=== PATIENT | female | born 1990 | race African-American/Black ===

== ENCOUNTER 2022-10-14 10:33 | Outpatient (CLI) | payer BC, SELFPAY ==
[2022-10-14 23:09] LABS: HCG Qualitative Serum* Negative (Negative)
== END 2022-10-14 10:34 | disposition home or self-care (01) ==
LOC: FRMREF 13:19
PROVIDERS: Visit Provider Family Medicine
DX: N91.2 Amenorrhea, unspecified (principal)
CPT/HCPCS: 84703

== ENCOUNTER 2023-01-31 12:06 | Outpatient (CLI) | payer BC, SELFPAY ==
--- NOTE | 2023-01-31 12:15 | CRLHL7_ITS ---
For Patients: As a result of the Century Cures Act, medical imaging exams and procedure reports are released immediately into your electronic medical record. You may view this report before your referring provider. If you have questions, please contact your health care provider. INDICATION: First trimester scan, establish dates. TECHNIQUE: Real-time glaser-scale imaging of the pelvis was performed. FINDINGS: Sonographic imaging demonstrates a single living intrauterine gestation. The embryo demonstrates a regular cardiac rate measuring 163 beats per minute. The embryo`s crown-rump length measurement of 5.6 cm corresponds to a gestational age of 12 weeks 1 day with a sonographic due date of 08/14/2023. There is a normal-appearing yolk sac. Right ovarian corpus luteum cyst. Ovaries are otherwise unremarkable. IMPRESSION: Normal first trimester OB ultrasound exam. Gestational age calculated at 12 weeks 1 day with a sonographic due date of 08/14/2023 . Dictated by Shayy Hansen MD @ 01/31/2023 1:15:52 PM (Electronically Signed)
== END 2023-01-31 12:07 | disposition home or self-care (01) ==
LOC: US 12:07
PROVIDERS: PCP Family Medicine; Visit Provider Physician Assistant
DX: Z34.91 Encounter for supervision of normal pregnancy, unspecified, first trimester (principal); Z3A.12 12 weeks gestation of pregnancy
CPT/HCPCS: 76801; 86703; 86803; 86850; 86900; 86901; 87340; 87491; 87591

== ENCOUNTER 2023-01-31 13:38 | Outpatient (CLI) | payer BC, SELFPAY ==
[2023-01-31 19:04] LABS: Chlamydia DNA Amplified* NOT DETECTED (No Detected); GC DNA Amplified* NOT DETECTED (No Detected)
== END 2023-01-31 13:39 | disposition home or self-care (01) ==
PROVIDERS: PCP Family Medicine; Visit Provider Advanced Practice Midwife
DX: Z34.91 Encounter for supervision of normal pregnancy, unspecified, first trimester (principal)
CPT/HCPCS: 86592; 86703; 86762; 86787; 86803; 86850; 86900; 86901; 87086; 87340; 87491; 87591

== ENCOUNTER 2023-03-31 08:54 | Outpatient (CLI) | payer BC, SELFPAY ==
--- NOTE | 2023-03-31 09:15 | CRLHL7_ITS ---
For Patients: As a result of the Century Cures Act, medical imaging exams and procedure reports are released immediately into your electronic medical record. You may view this report before your referring provider. If you have questions, please contact your health care provider. INDICATION: Evaluate anatomy. COMPARISON: None. TECHNIQUE: Real time glaser scale imaging of the fetus was performed. FINDINGS: Sonographic imaging demonstrates a single living intrauterine gestation. Fetus demonstrates a regular cardiac rate of 144 beats per minute. Fetus has a jesus breech orientation. The placenta lies fundally and toward the right lateral wall without evidence of placenta previa. The placental edge is 3.3 cm away from the internal cervical os. Amniotic fluid volume appears normal. Single deepest vertical pocket: 5.1 cm. The cervix is closed and measures 3.3 cm in length. The composite ultrasound gestational age is calculated at 20 weeks 2 days with an estimated sonographic due date of August 16, 2023. The estimated weight is 361 grams which lies at the 44 percentile. The following biometric measurements were obtained: Biparietal diameter: 4.7 cm/20 weeks 0 days 28% Head circumference: 17.3 cm/19 weeks 6 days 13% Abdominal circumference: 15.8 cm/21 weeks 0 days 56% Femur length: 3.3 cm/20 weeks 2 days 33% The HC/AC ratio measures: 1.1 range (1.07-1.25) On anatomic survey, there is a normal appearance of the cerebral ventricles, cisterna magna and cerebellum. The nose, lips, and facial profile appear normal. The cervical, thoracic and lumbar spine are well visualized and appear normal. There is a normal four-chamber heart view and the left and right ventricular outflow tracts appear normal. diaphragm, stomach, kidneys and bladder appear normal. There is a normal three-vessel cord. The cord insertion site is eccentric. The four extremities appear normal. IMPRESSION: Normal OB ultrasound exam with concordance of clinical and sonographic dating. No intrinsic abnormalities noted on anatomic survey. Eccentric cord insertion site on the placenta. Dictated by Braden Orr MD @ 03/31/2023 10:35:46 AM (Electronically Signed)
== END 2023-03-31 08:55 | disposition home or self-care (01) ==
LOC: US 08:54
PROVIDERS: PCP Family Medicine; Visit Provider Advanced Practice Midwife
DX: Z34.92 Encounter for supervision of normal pregnancy, unspecified, second trimester (principal); Z3A.20 20 weeks gestation of pregnancy
CPT/HCPCS: 76805

== ENCOUNTER 2023-05-26 11:47 | Outpatient (CLI) | payer BC, SELFPAY | END 2023-05-26 11:48 | disposition home or self-care (01) | LOC: FRMREF 11:47 | PROVIDERS: PCP Family Medicine; Visit Provider Registered Nurse | DX: Z34.93 Encounter for supervision of normal pregnancy, unspecified, third trimester (principal); Z3A.28 28 weeks gestation of pregnancy | CPT/HCPCS: 86592 ==

== ENCOUNTER 2023-06-20 11:50 | Outpatient (CLI) | payer BC, SELFPAY ==
[2023-06-20 12:14] VITALS: BP 106/65; PULSE 93
[2023-06-20 12:24] VITALS: TEMP 36.9
[2023-06-20 12:56] LABS: Appearance Urine Slightly Cloudy (Clear); Bilirubin Urine Negative (Negative); Blood Urine Negative (Negative); Color Urine Yellow (Yellow); Glucose Urine Negative (Negative); Ketones Urine Negative (Negative); Leukocyte Esterase Urine Trace (Negative); Nitrite Urine Negative (Negative); Protein Urine Negative (Negative); Urobilinogen Urine 0.2 (0.2-1.0); pH Urine 7.5 (5.0-8.5)
[2023-06-20 13:00] LABS: Clue Cells No Clue Cells Seen (None Seen); Trichomonas No Trichomonas Seen (None Seen); Yeast No Yeast Seen (None Seen)
[2023-06-20 13:06] LABS: Amnisure Rom* Negative
[2023-06-20 13:07] LABS: RBC Urine 0-2 (0-2)
[2023-06-20 13:08] LABS: Bacteria Urine Many; Squamous Epithelial Cell Urine Many (None-Few); WBC Urine 0-2 (0-5)
[2023-06-20 13:19] LABS: Fetal Fibronectin* Negative (Negative)
--- NOTE | 2023-06-20 14:04 | PC.OBNST ---
NST Note NST Note Start: 06/20/23 11:55 Freq: ONCE Status: Active Protocol: Document 06/20/23 14:00 ESTHER (Rec: 06/20/23 14:04 BRIT [id number]) NST Note 5 Para (# of births) 3 EDC 08/14/23 Gestational Age In Weeks & Days 32 Weeks & 1 Days Patient Presented with Complaint(s) of Contractions/cramping Reactive Yes Appropriate for Gestational Age Yes RN Vivian Gomez RN Date 06/20/23 Reactive Yes Appropriate for Gestational Age Yes ANDREW Arredondo CNM Date 06/20/23 OB NST charge Yes Complete NST Note via Write Note Yes The provider's electronic signature indicates the NST is reactive/appropriate for gestational age. *Note to provider: If an addendum is required, open the patient's chart and click on the note under the Nurse/Allied Health tab.
== END 2023-06-20 14:00 | disposition home or self-care (01) ==
LOC: OB OUT 11:51 → OB 11:51
PROVIDERS: PCP Family Medicine; Visit Provider Advanced Practice Midwife
DX: O47.03 False labor before 37 completed weeks of gestation, third trimester (principal); Z3A.32 32 weeks gestation of pregnancy
CPT/HCPCS: 59025; 76815; 81003; 81015; 84112; 87086; 87210; 99213

== ENCOUNTER 2023-07-08 13:41 | Outpatient (CLI) | payer BC, SELFPAY | END 2023-07-08 13:42 | disposition home or self-care (01) | LOC: FRMREF 13:42 | PROVIDERS: PCP Family Medicine; Visit Provider Registered Nurse | DX: O09.33 Supervision of pregnancy with insufficient antenatal care, third trimester (principal); Z34.93 Encounter for supervision of normal pregnancy, unspecified, third trimester; Z3A.34 34 weeks gestation of pregnancy | CPT/HCPCS: 80306 ==

== ENCOUNTER 2023-07-27 14:49 | Outpatient (CLI) | payer BC, SELFPAY ==
[2023-07-28 19:34] LABS: Strep B DNA Probe Negative (Negative)
[2023-07-28 19:43] LABS: Strep B Susceptibility Needed? No
== END 2023-07-27 14:50 | disposition home or self-care (01) ==
PROVIDERS: PCP Family Medicine; Visit Provider Advanced Practice Midwife
DX: Z34.93 Encounter for supervision of normal pregnancy, unspecified, third trimester (principal); Z3A.37 37 weeks gestation of pregnancy; Z20.2 Contact with and (suspected) exposure to infections with a predominantly sexual mode of transmission
CPT/HCPCS: 86480; 87081; 87653

== ENCOUNTER 2023-08-18 13:49 | Outpatient (CLI) | payer BC, SELFPAY ==
[2023-08-18 14:16] VITALS: BP 118/72; PULSE 109; TEMP 37.1
--- NOTE | 2023-08-18 15:57 | PM.OBLDTN ---
OB - Triage/Final Diagnosis Visit Information Time Seen by Provider: 15:58 Date Seen: 08/18/23 Date of evaluation: 08/18/23 Narrative: The patient is a 33 year old 5 para 3 at 40.4 weeks gestation, who presents with contractions. She has been having increasing contractions for the last week. She states they feel stronger today. Also had a few bouts of diarrhea this morning. SVE done, 1-2/thick/-3, posterior. Given options of going home or repeating in an hour. She preferred to stay, and a repeat exam an hour later demonstrated no change. We reviewed these may be early labor or just garrett alyssa ctx. She was given the option of going home, or staying a few more hours for a repeat exam, since she lives almost 30 mins away and this is her 4th baby. She decided to go home. Labor precautions/when to return were reviewed, including contractions increasing in intensity, increasing pressure/urge to push, SROM, bleeding, or decreased movement. She did ask about an IOL, which she has scheduled for Tuesday when she is 41 weeks. We reviewed the [facility] policy for IOL, and she does not meet the criteria at this time. Evaluation Vital signs: Vital Signs - 24 hr 08/18/23 14:16 08/18/23 14:16 Temperature 98.7 F Pulse Rate 109 H Blood Pressure 118/72
--- NOTE | 2023-08-18 16:04 | PC.OBNST ---
NST Note NST Note Start: 08/18/23 16:03 Freq: Status: Active Protocol: Document 08/18/23 16:03 SCOTT (Rec: 08/18/23 16:03 SCOTT [id number]) NST Note 5 Para (# of births) 3 EDC 08/14/23 Gestational Age In Weeks & Days 40 Weeks & 4 Days Patient Presented with Complaint(s) of Contractions/cramping Reactive Yes Appropriate for Gestational Age Yes ANDREW Huertas RN Date 08/18/23 Reactive Yes Appropriate for Gestational Age Yes ANDREW Hill RN Date 08/18/23 OB NST charge Yes Complete NST Note via Write Note Yes The provider's electronic signature indicates the NST is reactive/appropriate for gestational age. *Note to provider: If an addendum is required, open the patient's chart and click on the note under the Nurse/Allied Health tab.
== END 2023-08-18 16:00 | disposition home or self-care (01) ==
LOC: OB OUT 13:50 → OB 13:50
PROVIDERS: PCP Family Medicine; Visit Provider Advanced Practice Midwife
DX: O47.1 False labor at or after 37 completed weeks of gestation (principal); Z3A.40 40 weeks gestation of pregnancy
CPT/HCPCS: 59025; 99213

== ENCOUNTER 2023-08-22 07:18 | Inpatient (IN) | payer BC, SELFPAY ==
[2023-08-22] VITALS (17 sets, daily range): BP systolic 99–127; BP diastolic 59–75; PULSE 80–104; RESP 16; TEMP 36.4–37.1; O2SAT 97–98; BMI 33.7
[2023-08-22] MEDS: miSOPROStoL 25 MCG/0.25 TABLET VAGINAL ×2 (08:25→12:29)
--- NOTE | 2023-08-22 08:52 | W.PM.LDBA ---
Subjective History of Present Illness Narrative: Miky is a 33yo is a at 41 1/7 weeks gestation being admitted to Labor and Delivery for induction of labor for post-term. Her full history and physical was dictated by GUILLE Aguayo on 08/06/2023. Please see this for details. Specific Issues/Plans Partner: Midhagaa IOL 08/22 H&P for labor 07/27/23 by Fidencio Dewitt CNM 1. FOB Hep C+, has been treated. 2. Hx tapeworm December 2022. Was treated. 3. Nausea/vomiting. Started Unisom &B6 at NOB. PRN Zofran script also sent. Resolved. 4. Thrombocytopenia Platelets 128 at NOB. 28 weeks: plt 138. Recheck at 37 weeks: 146 5. Infrequent care. Neg Utox at 34 weeks. COVID: Flu: offer at next visit; declined on 07/08 TDAP: 07/08 OB - Problem Based A/P Additional Plan (1) Encounter for induction of labor: Status: Acute (2) Post term , 41 weeks: Status: Acute (3) Thrombocytopenia affecting : Status: Acute Plan ASSESSMENT:? 33 at 41 1/7 weeks gestation? complicated by:?Hx of tapeworm early 2022, Thrombocytopenia, infrequent care Labor type: Induced, not in labor? Category 1 FHR pattern.?? Labor complicated by: none? GBS negative? ? PLAN:? 1. Routine intrapartum cares as ordered. Discussed induction methods. Recommend vaginal cytotec every 4 hour. She agrees with plan. 2. Monitoring per policy, continuous 3. Planning unmedicated . Candidate for analgesia of choice if desired.?? 4. Patient encouraged to reposition and ambulate to promote physiologic labor and .? 5. Plan CBC for thrombocytopenia of . 6. Anticipate ? Delivery/Labor/Induction Plan Plan: induction Induction method: per misoprostol protocol OB Exam Physical Exam Vital signs: Temp Pulse Resp BP Pulse Ox 98.4 F 101 H 16 118/69 98 08/22/23 07:38 08/22/23 07:38 08/22/23 07:38 08/22/23 07:38 08/22/23 07:38 Narrative: Vitals Reviewed Constitutional:? Alert and oriented x3 HEENT:? Normocephalic, atraumatic Neck:? Supple Lungs:? Clear to auscultation bilaterally Heart:? Regular rate and rhythm, no murmur, rub or gallop Abdomen:? Soft, nontender, and gravid. Vertex by Jose's, confirmed with cervical exam. Extremities:? No edema or erythema Cervix: 0.5 cm/60%/-3 station/vertex NST: 135 bpm/moderate variability/15x15 accelerations/no decelerations/occasional contractions Detailed Labor and Delivery Exam Patient Gravid: Yes
[2023-08-22 09:35] LABS: Basophils Absolute Auto 0.03 K/uL (0.00-0.30); Basophils Percent Auto 0.4 % (0.0-3.0); Eosinophils Absolute Auto 0.07 K/uL (0.00-0.50); Eosinophils Percent Auto 0.9 % (0.0-7.0); Hematocrit 38.5 % (33.0-51.0); Hemoglobin* 13.1 gm/dL (12.0-16.0); Immature Granulocytes Abs Auto 0.04 K/uL (0.00-0.30); Immature Granulocytes Pct Auto 0.5 %; Lymphocytes Percent Auto 16.1 % (20-44); Mean Corpuscular HGB Conc 34 gm/dL (32-36); Mean Corpuscular Hemoglobin 30 pg (26-34); Mean Corpuscular Volume 88 fL (80-100); Monocytes Percent Auto 5.1 % (0.0-11.0); Platelet Count* 122 K/uL (140-440); RDW Coefficient of Variation % 14.7 % (11.5-15.5); Red Blood Count 4.36 m/uL (4.00-5.20); White Blood Count* 8.21 K/uL (4.50-11.00)
[2023-08-22 09:41] LABS: Slide Review Reflex No
[2023-08-22] MEDS: fentaNYL 100 MCG/2 ML inj 50 MCG IVP (17:54)
[2023-08-22] MEDS: OXYTOCIN 30 unit/500 ML in NS 30 UNIT/500 ML BAG 300 UNIT IVPB (20:46)
--- NOTE | 2023-08-22 22:57 | W.PM.OBVAGDE ---
OB Procedure Vag Delivery Mother Details Mother Details: Miky is a 33 year-old, 5, now Para 4014, admitted on 08/22/23 at 41.1 weeks gestation. : 5 Para: 4 Weeks Gestation: 41.1 Admission Date: 08/22/23 Additional Details Amniotic Membrane Status: AROM Amniotic Membrane Rupture Date: 08/22/23 Amniotic Membrane Rupture Time: 20:20 Amniotic Membrane Fluid Description: Meconium Stained Analgesia/Anesthesia Type: None and Nitrous Oxide Waterbirth: No Pitcoin: Yes ([facility] only) Intrapartal Events: Labor Induction and Mod/Heavy Meconium Fluid Induction Method: per misoprostol protocol Labor Onset: 17:45 Complete: 20:30 Pushin:35 Heart: heart tones during second stage were reassuring throughout, moderate variability with good baseline. Delivery Details Delivery Date: 08/22/23 Delivery Time: 20:44 Route of delivery: Infant Gender: Male Viability: Alive; Heart Rate Present Position at Delivery: OA Delivery Details: Patient was admitted for induction of labor for post-term. She received two doses of cytotec then progressed normally. AROM noted at 2019 with thick meconium stained fluid, peds notified to come in for delivery. Patient was complete at 2029 and pushing at 2034. Tapeworm noted in maternal stool during pushing. of a viable male at 2043 in semi-fowlers on the bed. Vertex delivered OA. No nuchal cord or shoulder. Body delivered easily and without incident. Infant passed to mothers abdomen with a vigorous cry. Cord was clamped and cut at > 5 minutes. APGARS were 8 at one minute and 9 at five minutes respectively. Mouth was bulb suctioned. Intact placenta with a 3 vessel cord delivered spontaneously at 2050. Fundus firm. 1st degree identified, not repaired. QBL 200 cc. Mother and baby stable; mother plans to breastfeed. Infant weight 8lb 1.8 oz. 1 Minute Interval Total Score: 8 5 Minute Interval Total Score: 9 Additional Details Shoulder Dystocia: No Placenta Delivery Time: 20:51 Placental Delivery Description: Spontaneous Procedure Done: Global Blood Loss: 200 Laceration: Perineal - 1st Degree (not repaired) Blood Loss Measurement Type: QBL Bakri Used: No Sponge/Need Count Correct: Yes Cord Vessel Description: 3 Vessels Event Summary Status: Mother and infant were stable after delivery. Disposition: floor
[2023-08-23] MEDS: ACETAMINOPHEN 500 MG TABLET 1000 MG PO ×2 (03:49→22:48)
[2023-08-23 03:51] VITALS: BP 111/73; PULSE 108; RESP 16; TEMP 36.3
[2023-08-23 08:29] VITALS: BP 111/71; PULSE 98; RESP 16; TEMP 36.2; O2SAT 99
[2023-08-23] MEDS: DOCUSATE SODIUM 100 MG CAPSULE PO (08:35)
[2023-08-23 12:36] VITALS: BP 116/71; PULSE 90; RESP 16; TEMP 36.7; O2SAT 97
--- NOTE | 2023-08-23 12:37 | PM.OBDSVD1 ---
DS: Providers Provider Date Seen: 08/23/23 Date of admission: 08/22/23 07:18 Primary care physician: Oumou Araujo MD Admitting Clinician: Francia Arredondo CNM Consults: 08/23/23 11:30 Consult to Infectious Diseases [CONS] Routine Comment: Consulting Provider: [facility] Consult priority: Urgent Has provider been notified: No Call back required?: Yes Attending Physician on discharge: Francia Arredondo CNM Date of Discharge: 08/23/23 Exam Const: Vital Signs, click to edit/add: Vital Signs - 24 hr 08/22/23 16:35 08/22/23 16:35 08/22/23 19:38 Temperature 97.5 F L Pulse Rate 95 93 Pulse Rate [Blood Pressure Cuff] Respiratory Rate Blood Pressure 120/73 113/65 Blood Pressure [Le ft Arm] Pulse Oximetry Oxygen Delivery Me thod 08/22/23 21:02 08/22/23 21:02 08/22/23 21:14 Temperature 98.7 F Pulse Rate 91 91 Pulse Rate [Blood Pressure Cuff] Respiratory Rate Blood Pressure 118/75 127/60 Blood Pressure [Le ft Arm] Pulse Oximetry Oxygen Delivery Me thod 08/22/23 21:17 08/22/23 21:29 08/22/23 21:30 Temperature Pulse Rate 93 Pulse Rate [Blood Pressure Cuff] Respiratory Rate 16 16 Blood Pressure 105/59 L Blood Pressure [Le ft Arm] Pulse Oximetry 98 98 Oxygen Delivery Me thod 08/22/23 21:45 08/22/23 21:46 08/22/23 21:59 Temperature Pulse Rate 82 81 Pulse Rate [Blood Pressure Cuff] Respiratory Rate 16 Blood Pressure 113/64 109/69 Blood Pressure [Le ft Arm] Pulse Oximetry 97 Oxygen Delivery Me thod 08/22/23 22:14 08/22/23 22:29 08/22/23 22:44 Temperature Pulse Rate 85 80 85 Pulse Rate [Blood Pressure Cuff] Respiratory Rate Blood Pressure 111/69 108/67 117/66 Blood Pressure [Le ft Arm] Pulse Oximetry Oxygen Delivery Me thod 08/22/23 23:56 08/23/23 03:51 08/23/23 08:29 Temperature 98.2 F 97.3 F L 97.1 F L Pulse Rate Pulse Rate [Blood Pressure Cuff] 81 108 H 98 Respiratory Rate 16 16 16 Blood Pressure Blood Pressure [Le ft Arm] 99/66 111/73 111/71 Pulse Oximetry 99 Oxygen Delivery Me thod Room Air Room Air Room Air OB - DS: Summary Hospital Course Hospital Course: The patient is a 33 year old G [] P [] at [] weeks gestation that was admitted to the Center on 08/22/23 for []. She had an [uncomplicated/complicated] [vaginal/] delivery. She delivered a viable [male/female] . She is [breast/bottle] feeding. the patient has done well. [place] Gender: Male Time Spent with Patient Time attestation: Total time spent providing and/or coordinating discharge services: Discharge Plan Discharge Disposition: Home, Self-Care Date of Admission: 08/22/23 07:18 Attending Provider on Discharge: Makenzie Dewitt Consulting Providers: Denia Ventura; Marianela Junior; Ga Ledesma Tiffany; Saundra Jose Primary Care Provider: Oumou Araujo Condition: Stable Anticipated Discharge Date/Time: 08/23/23 23:00 Discharge Medications: New docusate sodium 100 mg Capsule 100 mg PO DAILY Qty: 90 0RF Rx Instructions: Take 1-2 tablets daily as needed for constipation. ibuprofen 600 mg Tablet 600 mg PO Q6H PRNQty: 30 0RF albendazole 200 mg tablet 400 mg PO QHS 3 Days Qty: 6 0RF Continued prenat.vits,lori,dxl-khwo-discd Tablet 1 tab PO QDAY Qty: 90 5RF Discharge Orders: Discharge Order (Routine); Ordered 08/23/23 Ordered By: Makenzie Dewitt Patient Education: OB Vaginal/Breast Feeding Additional Instructions: Discharge instructions were reviewed with the patient including signs and symptoms of infection and home going medications.? Lifting Restrictions: 20 pounds for 6? weeks? ?? Do not drive while taking narcotic pain meds.? Off Work or School for 6 weeks.? ?? Symptoms to report to doctor:? -Bleeding that saturates more than one pad per hour? -Passing clots larger than the size of a golf ball? -Pain not relieved by prescribed medication? -Fever above 100.4 degrees Fahrenheit? -A foul vaginal odor? -Difficulty in emotions, mood and functions? -Thoughts of hurting yourself and/or ? -Painful, reddened area in your breast? -Any drainage, redness or tenderness in your IV/epidural site? -Severe headache that doesn't improve after taking medications? -Changes in vision, including temporary loss of vision, blurred vision, and/or light sensitivity? -Upper abdominal pain (usually under ribs on the right side)? -Decrease in urination or painful, frequent urinating? -Chest pain? -Shortness of breath? -Tenderness or pain with redness and/swelling in the calf(s) of your leg? ?? Follow Up in clinic in 2 and 6 weeks.? ?? consultation services are available to all mothers and babies for the first year after delivery.? To make an appointment, please call [phone].? ? Follow Up Appointments: [facility] [Provider Group] Forms: MyHealth Info Instructions
--- NOTE | 2023-08-23 12:52 | P.OBPN_ITS ---
OB - PN:Subj Subjective Date Seen: 08/23/23 Narrative: Consulted with infectious disease about recommendations for Miky's tape worm reinfection. They recommended treatment with Albendazole and collection of a stool sample for identification. He was unaware if the medication was safe with lactations. ID did not recommend any other treatment or tests at this time. If a third infection occurs a referral to ID should be placed and consider treatment of other members of the family. I had a discussion with Miky about her symptoms and exposure. She states that [place] has lived in the for [place] years and for the first time they went back to [place] to visit her husbands family. It was after that trip that she first developed symptoms. She was treated for that occurrence in December of 2022. She does state that she did feel that she was developing symptoms during but did not say anything as she was concerned about effects of potential treatments on the . She states that she has checked the stools of her other children and they have not had any indications of infection. She is agreeable to a stool sample and she will be sent home with the testing kit if she doesn't have a bowel movement before discharge. We discussed that the medication for treatment don't have clear guidance for use with . It does have a half life of 12 hours. We discussed waiting for treatment until she is finished , stopping and pumping and dumping only for the 3 days of the treatment or taking the medication at bedtime and not during the 12 hours after each dose. She is unsure what she will do at this time but is considering stop ping for 3 days but waiting 1-2 weeks before starting the treatment. Discussed the risks and benefits of immediate treatment vs delayed treatment. OB - PN: Obj Exam Physical Exam: Vital signs: Temp Pulse Resp BP Pulse Ox O2 Del Method 98.1 F 90 16 116/71 97 Room Air 08/23/23 12:36 08/23/23 12:36 08/23/23 12:36 08/23/23 12:36 08/23/23 12:36 08/23/23 12:36 OB - PN: A/P Delivery Assessment and Plan (1) Encounter for induction of labor: Status: Acute (2) Post term , 41 weeks: Status: Acute (3) Thrombocytopenia affecting : Status: Acute
[2023-08-23] MEDS: IBUPROFEN 600 MG TABLET PO (13:19)
--- NOTE | 2023-08-23 13:36 | PM.OBPNVD1 ---
OB - PN:Subj Subjective Date Seen: 08/23/23 Patient comments OB post-: no complaints, pain well controlled, tolerating diet and flatus present [place] status: bottle, and doing well feeding status: breast and bottle feeding Narrative: The patient feels well.? The pain is well controlled with current medications.? She has no new complaints.? Urinary output is adequate and she is voiding without difficulty.? Has a good appetite, is tolerating a general diet, is passing flatus, and has not had a bowel movement.? Has scant amount of rubra lochia.? She is ambulating well.?She initially wanted to discharge this evening but has since changed her mind and would prefer to discharge tomorrow. See progress note from today for information on infectious disease consultation, plan, and treatment for tapeworm infection. OB - PN: Obj Exam Physical Exam: Vital signs: Temp Pulse Resp BP Pulse Ox O2 Del Method 98.1 F 90 16 116/71 97 Room Air 08/23/23 12:36 08/23/23 12:36 08/23/23 12:36 08/23/23 12:36 08/23/23 12:36 08/23/23 12:36 Narrative: GENERAL APPEARANCE:? normal affect, alert, no distress? MOOD:? appropriate? CHEST:? clear to auscultation and percussion? HEART:? regular rate and rhythm? ABDOMEN:? soft, non-tender the uterine fundus is U/2 and is appropriate for the stage of recovery.? PERINEUM:? mild edema of the perineum, there is a 1st degree laceration that is healing well.? EXTREMITIES:? normal and no edema? OB - PN: A/P Delivery Assessment and Plan (1) Tapeworm: Status: Acute (2) Lactating mother: Status: Acute (3) care following vaginal delivery: Status: Acute Plan 33 year old on day 1.? 1. cares.? 2. Anticipate discharge tomorrow.? 3. Collect stool sample for tapeworm analysis. Plan day: 1 Plan: routine care
[2023-08-23 16:32] VITALS: BP 103/68; PULSE 81; RESP 16; TEMP 36.6; O2SAT 98
[2023-08-23 20:37] VITALS: BP 106/73; PULSE 68; RESP 18; TEMP 36.6; O2SAT 99
[2023-08-24 04:25] VITALS: BP 111/77; PULSE 81; RESP 18; TEMP 36.7; O2SAT 99
[2023-08-24] MEDS: IBUPROFEN 600 MG TABLET PO (04:27)
[2023-08-24 07:21] VITALS: BP 104/72; PULSE 83; RESP 18; TEMP 36.5; O2SAT 98
--- NOTE | 2023-08-24 08:22 | P.DS_ITS ---
DS: Providers Provider Date Seen: 08/24/23 Date of admission: 08/22/23 07:18 Primary care physician: Oumou Araujo MD Admitting Clinician: Francia Arredondo CNM Consults: 08/23/23 11:30 Consult to Infectious Diseases [CONS] Routine Comment: Consulting Provider: [facility] Consult priority: Urgent Has provider been notified: No Call back required?: Yes Attending Physician on discharge: Lewis Gómez CNM Date of Discharge: 08/24/23 DS: Diagnosis Discharge Diagnosis (1) care following vaginal delivery: Status: Acute (2) Lactating mother: Status: Acute (3) Tapeworm: Status: Acute Exam Narrative: Exam Narrative: GENERAL APPEARANCE: ?normal affect, alert, no distress MOOD: ?appropriate HEENT: normocephalic, neck supple, full ROM CHEST: ?Symmetrical chest wall movement. ?Normal respiratory effort. ?Clear to auscultation HEART: ?regular rate and rhythm ABDOMEN: ?soft, non-tender. Uterine fundus is firm, 1 below Umbilicus, Midline and is appropriate for the stage of recovery. ?Bowel sounds present. PERINEUM: ?mild edema of the perineum, there is a 1st degree laceration that is healing well. EXTREMITIES: ?normal and no edema Const: Vital Signs, click to edit/add: Vital Signs - 24 hr 08/23/23 08:29 08/23/23 12:36 08/23/23 16:32 Temperature 97.1 F L 98.1 F 97.8 F Pulse Rate [Blood Pressure Cuff] 98 90 81 Respiratory Rate 16 16 16 Blood Pressure [Le ft Arm] 111/71 116/71 103/68 Pulse Oximetry 99 97 98 Oxygen Delivery Me thod Room Air Room Air Room Air 08/23/23 20:37 08/24/23 04:25 08/24/23 07:21 Temperature 97.8 F 98.0 F 97.7 F Pulse Rate [Blood Pressure Cuff] 68 81 83 Respiratory Rate 18 18 18 Blood Pressure [Le ft Arm] 106/73 111/77 104/72 Pulse Oximetry 99 99 98 Oxygen Delivery Me thod Room Air Room Air Room Air Documenting provider has reviewed patient's vital signs: yes OB - DS: Summary Hospital Course Hospital Course: The patient is a 33 year old G 5 P 4 at 41.1 weeks gestation that was admitted to the Center on 08/22/23 for induction of labor for post dates. She had an uncomplicated vaginal delivery. She delivered a viable male . She is breast/bottle feeding. the patient has done well. She was diagnosed with tapeworms which were noted during the pushing stage of her delivery as well. Peripartum Data delivery method: Vaginal Laceration description: Perineal - 1st Degree complications: none Gender: Male Discharge Plan: Home Status at Discharge Functional status at discharge: independent ambulation Overall status at discharge: patient is progressing back to baseline Time Spent with Patient Time attestation: Total time spent providing and/or coordinating discharge services: Time spent: Less than 30 minutes Discharge Plan Discharge Disposition: Home, Self-Care Date of Admission: 08/22/23 07:18 Attending Provider on Discharge: Makenzie Dewitt Consulting Providers: Denia Ventura; Marianela Junior; Ga Ledesma; Krupa Wise; Saundra Jose Primary Care Provider: Oumou Araujo Condition: Stable Anticipated Discharge Date/Time: 08/23/23 23:00 Discharge Medications: New docusate sodium 100 mg Capsule 100 mg PO DAILY Qty: 90 0RF Rx Instructions: Take 1-2 tablets daily as needed for constipation. ibuprofen 600 mg Tablet 600 mg PO Q6H PRNQty: 30 0RF albendazole 200 mg tablet 400 mg PO QHS 3 Days Qty: 6 0RF acetaminophen 500 mg Tablet 1,000 mg PO Q6H PRNQty: 0 0RF Continued prenat.vits,lori,[id number] Tablet 1 tab PO QDAY Qty: 90 5RF Discharge Orders: Discharge Order (Routine); Ordered 08/24/23 Ordered By: Lewis Gómez Patient Education: OB Vaginal/Breast Feeding Additional Instructions: Discharge instructions were reviewed with the patient including signs and sympto ms of infection and home going medications.? Lifting Restrictions: 20 pounds for 6? weeks? ?? Do not drive while taking narcotic pain meds.? Off Work or School for 6 weeks.? ?? Symptoms to report to doctor:? -Bleeding that saturates more than one pad per hour? -Passing clots larger than the size of a golf ball? -Pain not relieved by prescribed medication? -Fever above 100.4 degrees Fahrenheit? -A foul vaginal odor? -Difficulty in emotions, mood and functions? -Thoughts of hurting yourself and/or ? -Painful, reddened area in your breast? -Any drainage, redness or tenderness in your IV/epidural site? -Severe headache that doesn't improve after taking medications? -Changes in vision, including temporary loss of vision, blurred vision, and/or light sensitivity? -Upper abdominal pain (usually under ribs on the right side)? -Decrease in urination or painful, frequent urinating? -Chest pain? -Shortness of breath? -Tenderness or pain with redness and/swelling in the calf(s) of your leg? ?? Follow Up in clinic in 2 and 6 weeks.? ?? consultation services are available to all mothers and babies for the first year after delivery.? To make an appointment, please call [phone].? ? Activity Level: Activity as Tolerated Discharge Diet: Regular Follow Up Appointments: [facility] [Provider Group] Forms: MyHealth Info Instructions
== END 2023-08-24 11:50 | disposition home or self-care (01) | DRG 560 ==
PROVIDERS: Admitting Provider Advanced Practice Midwife; PCP Family Medicine; Visit Provider Advanced Practice Midwife
DX: O48.0 Post-term pregnancy (principal); O99.12 Other diseases of the blood and blood-forming organs and certain disorders involving the immune mechanism complicating childbirth; D69.6 Thrombocytopenia, unspecified; O98.82 Other maternal infectious and parasitic diseases complicating childbirth; B71.9 Cestode infection, unspecified; Z86.19 Personal history of other infectious and parasitic diseases; O70.0 First degree perineal laceration during delivery; O77.0 Labor and delivery complicated by meconium in amniotic fluid; Z3A.41 41 weeks gestation of pregnancy; Z37.0 Single live birth
CPT/HCPCS: 36415; 59200; 85025; 86850; 86900; 86901; 87177; 87209; A9270; J3010

== ENCOUNTER 2024-01-18 10:30 | Outpatient (RCR) | payer BC, SELFPAY ==
--- NOTE | 2023-12-28 12:04 | PT.OPE ---
PT [place] Outpatient Eval PT [facility] Outpatient Eval Start: 12/26/23 14:58 Freq: Status: Active Protocol: Document 12/28/23 10:42 LSL (Rec: 12/28/23 11:42 LSL [id number]) E-signed By Saima Lewis PT Physical Therapy Outpatient Evaluation Insurance Information Insurance Name Medicaid Medical Diagnosis diastasis recti Treating Diagnosis weakness, impaired NM coordination of core musculature, Referring MD Ngo Subjective Subjective Pt. reports her doctor told her she has a diastasis recti and she only has pains when she sets her baby on her tummy . Pt. has 4 children from 6 months to 11 years. She has no back pain or pelvic floor related complaints at this time. She plans on having more children. However during the physical examination she began having some back pain and reports this is new since having her last child. 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 has a 1-1.5 separation from umbilicus up 3 Posture increased lordosis Assessment Assessment/Impression Pt. is a 33 y/o female who presents with a diastasis recti after the of her 4th child and is having some abdominal wall and LBP. She was quick to learn how to do a TA brace and coordinate it with her breathing. 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 Treatment will consist of therex and NM re-ed to assist in improving her core stability and dynamic function . Primary Functional Limitations sitting baby on her tummy Plan of Care Rehabilitation Potential Good Physical Therapy Goals SHORT TERM GOALS: (3 weeks) 1. Pt. able to engage TA during lifting, pushing, pulling and rotating tasks to decrease risk of injury while doing tasks like this during her childcare and job activities. Coordination/Communication With Referral Source Treatment Plan/Direct Interventions Neuromuscular Re-ed,Self-Care/ Home Management,Therapeutic Exercises Frequency/Duration 1x/week 3 weeks Patient Will Be Discharged From Therapy Skills Plateau,Independent w/ HEP,Independently Progressing Evaluation Billing Untimed Code Treatment Minutes 20 Complexity Low Certification Information Initial Certification Date 12/28/23 Ending Certification Date 02/27/24 Provider Signature Shows Agreement With POC & Medical Necessity Physician Signature & Date Requested Please Sign/Date Here Physician Comment/Change : Physician NPI Number #
== END 2024-03-20 13:47 | disposition home or self-care (01) ==
PROVIDERS: PCP Family Medicine; Visit Provider Physician Assistant
DX: M62.08 Separation of muscle (nontraumatic), other site (principal); R53.1 Weakness; R27.8 Other lack of coordination; Z51.89 Encounter for other specified aftercare
CPT/HCPCS: 97110; 97112; 97140; 97161; 97535

== ENCOUNTER 2024-10-19 12:29 | Outpatient (CLI) | payer BC, SELFPAY ==
[2024-10-19 22:55] LABS: Chlamydia DNA Amplified* NOT DETECTED (No Detected); GC DNA Amplified* NOT DETECTED (No Detected)
== END 2024-10-19 12:30 | disposition home or self-care (01) ==
PROVIDERS: PCP Family Medicine; Visit Provider Family Medicine
DX: Z00.00 Encounter for general adult medical examination without abnormal findings (principal); R53.83 Other fatigue; Z13.220 Encounter for screening for lipoid disorders; Z13.228 Encounter for screening for other metabolic disorders; Z11.3 Encounter for screening for infections with a predominantly sexual mode of transmission; Z13.29 Encounter for screening for other suspected endocrine disorder; Z12.4 Encounter for screening for malignant neoplasm of cervix
CPT/HCPCS: 80053; 80061; 80074; 82306; 84443; 86592; 86703; 87491; 87591; 88141; 88142